=== PATIENT | female | born 1945 | race Caucasian/White ===

== ENCOUNTER → 2023-11-20 07:37 | Outpatient (REF) | payer MEDICARE, SELFPAY ==
[2023-11-20 10:33] LABS: ALT (SGPT) 30 U/L (0-35); AST (SGOT) 30 U/L (14-36); Albumin 4.2 g/dl (3.5-5.0); Alkaline Phosphatase 122 U/L (38-126); Blood Urea Nitrogen 12 mg/dl (7-17); Calcium 10.4 mg/dl (8.4-10.2); Carbon Dioxide 27 mmol/L (22-30); Chloride 105 mmol/L (98-107); Glucose 112 mg/dl (70-99); HDL Cholesterol 43 mg/dl; LDL Cholesterol, Calculated 51 mg/dl; Potassium 4.7 mmol/L (3.5-5.1); Sodium 138 mmol/L (135-145); Total Bilirubin 0.5 mg/dl (0.2-1.3); Total Cholesterol 148 mg/dl (50-199); Total Protein 6.5 g/dl (6.3-8.2); Triglyceride 270 mg/dl (10-149); Very Low Density Lipoprotein 54 mg/dl (0-30); eGFR > 60.00
[2023-11-20 11:52] LABS: Glycohemoglobin (HgbA1c) 6.5 % (4.0-5.6)
[2023-11-20 13:34] LABS: Microalbumin, Random Urine 0.9 mg/dl (0.6-1.7); Microalbumin/creatinine Ratio 22.8 mg/g
== END ==
LOC: REG 07:37
PROVIDERS: ATTENDING PHYSICIAN Internal Medicine
DX: E11.9 Type 2 diabetes mellitus without complications (principal); I10 Essential (primary) hypertension
CPT/HCPCS: 36415; 80053; 80061; 82043; 82570; 83036

== ENCOUNTER → 2023-11-24 11:51 | Outpatient (REF) | payer MEDICARE, SELFPAY | LOC: RAD 11:51 | PROVIDERS: ATTENDING PHYSICIAN Nurse Practitioner Adult Health; FAMILY PHYSICIAN Internal Medicine | DX: R06.09 Other forms of dyspnea (principal) | CPT/HCPCS: 71250 ==

== ENCOUNTER → 2023-12-17 17:27 | Outpatient (REF) | payer MEDICARE, SELFPAY | LOC: RAD 17:27 | PROVIDERS: ATTENDING PHYSICIAN Nurse Practitioner Adult Health; FAMILY PHYSICIAN Internal Medicine | DX: R59.9 Enlarged lymph nodes, unspecified (principal) | CPT/HCPCS: 76536 ==

== ENCOUNTER → 2023-12-21 10:48 | Outpatient (REF) | payer MEDICARE, SELFPAY | LOC: RAD 10:48 | PROVIDERS: ATTENDING PHYSICIAN Psychiatry & Neurology Neurology; FAMILY PHYSICIAN Internal Medicine | DX: M25.552 Pain in left hip (principal) | CPT/HCPCS: 73502 ==

== ENCOUNTER → 2023-12-23 11:29 | Outpatient (REF) | payer MEDICARE, SELFPAY | LOC: HWRAD 11:29 | PROVIDERS: ATTENDING PHYSICIAN Psychiatry & Neurology Neurology; FAMILY PHYSICIAN Internal Medicine | DX: M46.1 Sacroiliitis, not elsewhere classified (principal) | CPT/HCPCS: 72192 ==

== ENCOUNTER → 2023-12-28 12:57 | Outpatient (REF) | payer MEDICARE, SELFPAY ==
[2023-12-28 13:20] VITALS: BP 153/66; BP_SYST 86
[2023-12-28 14:23] VITALS: BP 122/68; BP_SYST 80
[2023-12-28 14:37] VITALS: BP 122/68
== END ==
LOC: RADI 12:57
PROVIDERS: ATTENDING PHYSICIAN Nurse Practitioner Adult Health; FAMILY PHYSICIAN Internal Medicine
DX: R59.0 Localized enlarged lymph nodes (principal)
CPT/HCPCS: 88172; 88173; 88305; 38505; 76942; 88341; 88342

== ENCOUNTER → 2024-01-27 11:33 | Outpatient (REF) | payer MEDICARE, SELFPAY | LOC: WDC 11:33 | PROVIDERS: ATTENDING PHYSICIAN Internal Medicine | DX: Z12.31 Encounter for screening mammogram for malignant neoplasm of breast (principal) | CPT/HCPCS: 77063; 77067 ==

== ENCOUNTER → 2024-02-17 06:58 | Outpatient (REF) | payer MEDICARE, SELFPAY ==
[2024-02-17 08:08] LABS: % Basophils 0.8 % (0-2); % Eosinophils 2.3 % (0-6); % Lymphocytes 23.7 % (20.5-51.1); % Monocytes 10.8 % (1.7-9.3); % Neutrophils 61.4 % (42.2-75.2); Absolute Basophils 0.1 10^3/uL (0-0.2); Absolute Eosinophils 0.1 10^3/uL (0-0.7); Absolute Immature Granulocytes 0.1 10^3/uL (0-0.05); Absolute Lymphocytes 1.5 10^3/uL (1.2-3.4); Absolute Monocytes 0.7 10^3/uL (0.1-0.6); Absolute Neutrophils 3.8 10^3/uL (1.4-6.5); Hematocrit 41.1 % (37.0-47.0); Hemoglobin 13.9 g/dL (12.0-16.0); Mean Corp Hgb Conc. 33.8 g/dL (33.0-37.0); Mean Corpuscular Hgb 30.7 pg (27.0-31.0); Mean Corpuscular Volume 90.7 fL (81.0-99.0); Mean Platelet Volume 10.6 fL (7.4-10.4); Nucleated Red Blood Cells % 0 %; Platelet Count 280 10^3/uL (130-400); Red Blood Cell Count 4.53 10^6/uL (4.20-5.40); Red Cell Dist. Width 14.4 % (11.5-14.5); White Blood Cell Count 6.1 10^3/uL (4.8-10.8)
[2024-02-17 08:36] LABS: ALT (SGPT) 30 U/L (0-35); AST (SGOT) 34 U/L (14-36); Albumin 4.4 g/dl (3.5-5.0); Alkaline Phosphatase 97 U/L (38-126); Blood Urea Nitrogen 13 mg/dl (7-17); Calcium 10.5 mg/dl (8.4-10.2); Carbon Dioxide 28 mmol/L (22-30); Chloride 105 mmol/L (98-107); Glucose 90 mg/dl (70-99); HDL Cholesterol 40 mg/dl; LDL Cholesterol, Calculated 92 mg/dl; Potassium 4.8 mmol/L (3.5-5.1); Sodium 142 mmol/L (135-145); Total Bilirubin 0.4 mg/dl (0.2-1.3); Total Cholesterol 187 mg/dl (50-199); Total Protein 6.8 g/dl (6.3-8.2); Triglyceride 279 mg/dl (10-149); Very Low Density Lipoprotein 55 mg/dl (0-30); eGFR > 60.00
[2024-02-17 09:09] LABS: CEA 0.84 ng/ml
[2024-02-17 09:20] LABS: INR 0.99; PT 13.1 Sec (11.4-14.6)
[2024-02-17 09:21] LABS: APTT 33.5 Sec (23.4-35.0)
[2024-02-17 11:41] LABS: Glycohemoglobin (HgbA1c) 6.3 % (4.0-5.6)
[2024-02-17 16:01] LABS: CA 125 8.8 U/mL (0-35)
[2024-02-18 23:50] LABS: CA 19-9 10 U/mL (<=35)
== END ==
LOC: REG 06:58
PROVIDERS: ATTENDING PHYSICIAN Internal Medicine Hematology & Oncology; FAMILY PHYSICIAN Internal Medicine
DX: R93.5 Abnormal findings on diagnostic imaging of other abdominal regions, including retroperitoneum (principal); R59.0 Localized enlarged lymph nodes; C77.0 Secondary and unspecified malignant neoplasm of lymph nodes of head, face and neck; I10 Essential (primary) hypertension; E78.2 Mixed hyperlipidemia; E11.65 Type 2 diabetes mellitus with hyperglycemia; E03.9 Hypothyroidism, unspecified
CPT/HCPCS: 36415; 80053; 80061; 82378; 83036; 84443; 85025; 85610; 85730; 86301; 86304

== ENCOUNTER → 2024-02-29 12:13 | Outpatient (REF) | payer MEDICARE, SELFPAY ==
[2024-02-29 12:54] VITALS: BP 166/87; BP_SYST 77
[2024-02-29 14:15] VITALS: BP 145/70
== END ==
LOC: RADI 12:13
PROVIDERS: ATTENDING PHYSICIAN Internal Medicine Hematology & Oncology; FAMILY PHYSICIAN Internal Medicine
DX: D36.12 Benign neoplasm of peripheral nerves and autonomic nervous system, upper limb, including shoulder (principal)
CPT/HCPCS: 88305; 20206; 76942; 88333; 88341; 88342

== ENCOUNTER 2024-04-04 06:35 | Day surgery (SDC) | payer MEDICARE, SELFPAY ==
[2024-04-04 07:36] VITALS: BMI 34.6
[2024-04-04 07:51] VITALS: BP 139/78
[2024-04-04 08:05] LABS: Glucose - Point of Care 122 mg/dl (70-99)
[2024-04-04 08:27] VITALS: BMI 34.6
[2024-04-04 11:03] LABS: Glucose - Point of Care 102 mg/dl (70-99)
[2024-04-04 11:35] VITALS: BP 132/73
[2024-04-04 11:45] VITALS: BP 129/60
[2024-04-04 12:00] VITALS: BP 141/81
== END 2024-04-04 12:16 | disposition home or self-care (01) ==
LOC: SDS 06:35
PROVIDERS: ATTENDING PHYSICIAN Internal Medicine Gastroenterology
DX: C64.2 Malignant neoplasm of left kidney, except renal pelvis (principal); R59.0 Localized enlarged lymph nodes; K83.8 Other specified diseases of biliary tract
CPT/HCPCS: 43242; 88172; 88173; 88305; 82962; 88341; 88342

== ENCOUNTER → 2024-04-07 14:06 | Outpatient (REF) | payer MEDICARE, SELFPAY | LOC: HWRAD 14:06 | PROVIDERS: ATTENDING PHYSICIAN Internal Medicine Hematology & Oncology; FAMILY PHYSICIAN Internal Medicine | DX: R93.5 Abnormal findings on diagnostic imaging of other abdominal regions, including retroperitoneum (principal); R59.0 Localized enlarged lymph nodes; C77.0 Secondary and unspecified malignant neoplasm of lymph nodes of head, face and neck | CPT/HCPCS: 74177; Q9967 ==

== ENCOUNTER → 2024-05-12 06:30 | Day surgery (SDC) | payer MEDICARE, SELFPAY ==
[2024-05-12 07:10] VITALS: BMI 34.4
[2024-05-12 07:12] VITALS: BMI 34.4
[2024-05-12 07:15] VITALS: BP 102/69
[2024-05-12] MEDS: TYLENOL 1000 MG PO (07:38)
[2024-05-12] MEDS: NORMOSOL-R/PLASMALYTE-A 1000 IV (07:46)
[2024-05-12 07:51] LABS: Glucose - Point of Care 108 mg/dl (70-99)
[2024-05-12 08:07] VITALS: BP_SYST 76
[2024-05-12] MEDS: VANCOCIN 300 MG IV (08:19)
[2024-05-12] MEDS: VANCOCIN 300 ML IV (08:19)
[2024-05-12 08:40] LABS: Glucose - Point of Care 95 mg/dl (70-99)
== END ==
LOC: SDS 06:30
PROVIDERS: ATTENDING PHYSICIAN Surgery
DX: R59.0 Localized enlarged lymph nodes (principal); Z53.8 Procedure and treatment not carried out for other reasons
CPT/HCPCS: 38500; 82962

== ENCOUNTER 2024-05-12 11:46 | Inpatient (IN) | payer MEDICARE, SELFPAY ==
[2024-05-12] VITALS (64 sets, daily range): BP systolic 77–156; BP diastolic 39–85; BMI 35.2
[2024-05-12 08:49] LABS: Glucose - Point of Care 112 mg/dl (70-99)
--- NOTE | 2024-05-12 09:02 | ED.GENMED ---
History of Present Illness
General
Chief Complaint: CODE
Source: patient and other (Nurse/PA/physician at code)
Time Seen by Provider: 05/12/24 08:47
History of Present Illness
History of Present Illness:
78-year-old female in her normal state of health presenting for node biopsy of her left neck. She was in the preop holding area. She had had the IV already placed. She was receiving vancomycin. 5 minutes after starting the vancomycin they
checked on her and she was unresponsive and pulseless. Appeared to be PEA. Possibly junctional. No V. tach V-fib or asystole. CPR was started. Epinephrine was given. She was brought to the emergency department. On arrival to the ER
complaining of nausea general weakness. No general itching no hives no airway issue. She is allergic to Benadryl.
Past History
Past History
ED Past Medical History: Asthma, IDDM, Valvular disease and Hypothyroidism
ED Past Surgical History: Appendectomy, Cholecystectomy, (x2), Gynecological (Hysterectomy) and Other (Biopsy on Wed of thyroid nodules, Parathyroid surg, Thoracic outlet surg, Cervical Laminectomy)
Social History
Tobacco: Non-smoker
Alcohol: Occasional
Drug: None
Personal:
Living: with family
Review of Systems
Review of Systems
All Other Systems: Not applicable
Respiratory: Denies trouble breathing
Cardiac: Denies palpitations
ABD/GI: Reports no symptoms
Phy Exam
Physical Exam
Physical Exam:
GENERAL: Alert. High flow oxygen in place. Slight dry heaving at times. Mild erythema to the face. No hives.
EYE: Orbits normal.
NECK: Supple, no significant adenopathy.
ENT: Pharynx without erythema. Speech normal. No drooling or stridor
CARDIAC: Tachycardic and regular. Mild midsystolic murmur
LUNGS: Few crackles in the bases of the lungs. Otherwise unremarkable
ABDOMEN: Soft, without focal tenderness or distention
NEUROLOGICAL: Alert and oriented , grossly non-focal
SKIN: Warm and dry, no rash or lesion, no discoloration, skin intact.
MUSCULOSKELETAL: No edema,no deformity.Good color
PSYCH: Normal and appropriate interaction.
Course
Orders/Labs/Results
Orders:
Orders
05/12/24 08:53
Chest X-ray Portable [CR Chest Portable - 1 View] Stat
Comment:
Reason For Exam: breathing
Reason Study Needs to be Portable: Unable to Transport
05/12/24 08:55
Electrocardiogram (*1) Stat
Reason for Study: Other
Other Reason for Exam: chest pain
Cardiac Monitoring- Treatment ONCE
EKG- Treatment ONCE
IV Insert/Care/Rem.- Treatment PRN
Dexamethasone Sod Phosphate [Decadron] 8 mg IV NOW STA
Famotidine [Pepcid] 20 mg IV NOW STA
Pulse Ox/cont/shift [RESP] Stat
Quantity: 1
05/12/24 08:56
Dexamethasone Sod Phosphate [Decadron] 8 mg .ROUTE .STK-MED ONE
Famotidine [Pepcid] 20 mg .ROUTE .STK-MED ONE
05/12/24 09:01
Ondansetron Injectable [Zofran] 4 mg .ROUTE .STK-MED ONE
05/12/24 09:05
Ondansetron Injectable [Zofran] 4 mg IV NOW STA
05/12/24 09:15
Echo 2D MMode Color/Doppler [Echo 2D MMode Color/Doppler] Urgent
Reason for Study: cardiac arrest
05/12/24 09:27
Basic Metabolic Panel Urgent
Complete Blood Count/With Diff Urgent
D-Dimer Urgent
Comment: ADD ON
Magnesium Urgent
Comment: ADD
PTT Urgent
Prothrombin Time Urgent
Troponin I Urgent
05/12/24 09:35
EPINEPHrine 4 mg/250 mL NSS [Adrenalin] 4 mg in 250 ml IV NOW
Initial dose in mcg/min, then titrate:: 2
Titrate to keep:: MAP > 65 mmHg
Titrate by mcg/min:: 0.5 - 1 mcg/minute
Frequency of titrations (minutes):: 5
Maximum dose in mcg/min:: 10
Begin to taper infusion when:: Remained at goal for 4hrs
Taper by mcg/min:: 0.5 - 1 mcg/minute
Frequency of taper (minutes) if patient maintains goal:: 30
Taper to off?: Yes
If infusion off & no longer maintaining goal:: Contact Provider
05/12/24 11:18
Admit/Transfer Patient As Directed
Co-Sign Provider:
Level of Care: Inpatient admission
Assign to:: ICU
Physician / Group: Maria Del Rosario
Diagnosis: anaphylaxis with distributive shock
Reason for Hospitalization: anaphylaxis with distributive shock
Expected length of stay greater than two midnights?: Yes
ELOS- Estimated Length of Stay in days: 3
I certify the patient meets the requirements for IP care: Yes
PRN Pain Medication Management As Directed
May give lesser potent ordered pain med per pt: Yes
preference::
Protocol:: Medication orders for pain may be administered in a
manner that supports deferring to patient preference
when the pt is:
- Requesting an ordered lesser potent pain medication.
Least to most potent pain medications are defined
as: acetaminophen < NSAID < tramadol < opioids
(morphine, oxycodone, hydromorphone).
- Requesting a lesser dose of the same medication IF
ORDERED.
- Requesting a less intrusive route of administration
if both routes are prescribed by the provider (PO <
IV).
05/12/24 11:27
Code Status As Directed
Resuscitation Status: Full Code
05/12/24 13:13
0.9% Sodium Chloride 1000 ml [Nss] 1,000 ml IV 125 mls/hr
Bisacodyl [Dulcolax] 10 mg RECTAL [id number] PRN
Dextrose 50%-Water [Dextrose 50% Syringe] 12.5 grams IV [id number] PRN
Docusate W/Senna [Senokot-S] 1 tablet PO BIDPRN PRN
EPINEPHrine 4 mg/250 mL NSS [Adrenalin] 4 mg in 250 ml IV PER PROTOCOL
Currently infusing. Continue current dose and titrate:: Yes
Titrate to keep:: MAP > 65 mmHg
Titrate by mcg/min:: 0.5-1 mcg/min
Frequency of titrations (minutes):: 5
Maximum dose in mcg/min:: 10
Begin to taper infusion when:: Remained at goal for 4hrs
Taper by mcg/min:: 0.5-1 mcg/min
Frequency of taper (minutes) if patient maintains goal:: 30
Taper to off?: Yes
If infusion off & no longer maintaining goal:: Contact Provider
Glucagon [GlucaGen] 1 mg IM PRN PRN
HYDROmorphone [Dilaudid] 2 mg PO BIDPRN PRN
Insulin Aspart High Resistance [Novolog Flexpen-High Resistance] See Protocol SC AC
Ondansetron Injectable [Zofran] 4 mg IV Q6HPRN PRN
Polyethylene Glycol Powder [Miralax] 17 grams PO DAILYPRN PRN
05/12/24 13:13
Activity As Directed
Activity Level: With Assistance
Bedside Glucose Monitoring As Directed
Frequency: AC&HS
Additional Instructions:: Change to q6h if pt on TPN, tube feeding or not eating
Vital Signs As Directed
Frequency: Per unit guidelines
DX Deep Vein Thrombosis Video Routine
05/12/24 14:34
Lidocaine [Lidocaine 4% Patch] 1 patch TOPICAL DAILYPRN PRN
05/12/24 Dinner
1800 calorie (15 carb) Diabetic
At Your Request: Full Participation
05/12/24 18:00
Calcium Carbonate [Oscal Juan Manuel 500] 500 mg PO QPM
Calcium Polycarbophil [Fibercon] 1,250 mg PO QPM
Cholecalciferol (Vitamin D3) [VITAMIN D3 (cholecalciferol)] 25 mcg PO QPM
Cyanocobalamin [Vitamin B-12] 1,000 mcg PO QPM
Duloxetine Delayed Release [Cymbalta Delayed Release] 60 mg PO Q48H
Enoxaparin Sodium [Lovenox] 40 mg SC QPM
Gabapentin [Neurontin] 300 mg PO BID@0800,1800
Insulin Glargine Lantus [Lantus] 50 units Subcutaneous Insulin Syringe [Syringe-Insulin] 0 unit SC BID
Multivitamin [Theragran] 1 tablet PO QPM
05/12/24 22:00
Aspirin Low Dose EC [Aspir Low (Enteric Coated)] 81 mg PO HS
Clonazepam [Klonopin] 0.5 mg PO HS
Cyclobenzaprine HCl [Flexeril] 10 mg PO HS
Gabapentin [Neurontin] 600 mg PO HS
05/13/24 06:00
Basic Metabolic Panel IN AM
Complete Blood Count/No Diff IN AM
Glycohemoglobin (HgbA1c) IN AM
Levothyroxine [Synthroid] 100 mcg PO DAILY@0600
05/13/24 08:00
MetroNIDAZOLE (NON-FORM) [Metrocream 0.75% Cream] See Dose Instructions TOPICAL DAILY
doxycycline monohydrate [Oracea] See Dose Instructions PO DAILY
Abnormal Lab Results
05/12/24 05/12/24
08:48 09:27
RBC 4.06 L 10^6/uL
(4.20-5.40)
RDW 14.9 H %
(11.5-14.5)
MPV 10.6 H fL
(7.4-10.4)
Abs Immat Gran (auto) 0.1 H 10^3/uL
(0-0.05)
Immature Gran % 1.3 H %
(0-0.5)
D-Dimer 0.89 H ug/mlFEU
(0.00-0.50)
Chloride 109 H mmol/L
(98-107)
Glucose 149 H mg/dl
(70-99)
POC Glucose 112 H mg/dl
(70-99)
05/12/24 09:27
05/12/24 09:27
Vital Signs
Initial and Last Documented VS:
Initial Vital Signs
Pulse Resp BP Pulse Ox
132 20 105/65 93
05/12/24 08:48 05/12/24 08:48 05/12/24 08:48 05/12/24 08:48
Last Documented Vital Signs
Temp Pulse Resp BP Pulse Ox
98.7 F 110 20 100/64 95
05/12/24 15:06 05/12/24 13:21 05/12/24 13:10 05/12/24 13:00 05/12/24 13:10
*Pulse Oximetry
Patient hypoxic: yes
*EKG
Interpreted by ED Provider?: Yes
Interpretation: abnormal
Comparison EKG: changes noted
Heart Rate: 139
Rate: tachycardiac
Rhythm: sinus
Interval: normal interval
QRS Pattern: normal QRS
Ischemia: non-specific ST changes
*Measurement Psychologist Interpretation
Rate: tachycardiac
Interpretation: abnormal
Heart Rate: 107
Rhythm: sinus
*Critical Care Note
Total Time (30-74mins, 75-104mins- exclusive of procedures): 70
Update Note
Update Note:
0900... Status post cardiac arrest in IR. Patient was there for a routine lymph node biopsy. Asymptomatic on arrival to IR. Symptoms started 5 minutes after vancomycin. Apparently became pulseless unresponsive. Was somewhat erythematous but was
erythematous prior to the vancomycin. Was given epinephrine.
On arrival tachycardic nauseous. Nonrebreather in place. Tachycardia slowly improving. EKG with no acute severe ischemic changes. Chest x-ray unremarkable. Contacted cardiology for their input and opinion. At this point given the chronicity of
starting 5 minutes after the Vanco most suspicious of an anaphylactic like reaction.
0920.... Patient appears improved although mildly hypotensive. Cardiology will see and get a stat echo.
0935... Blood pressure 85. Wide-open fluids. Echo being done now. Very preliminary that there is no obvious issues.
1000... Cardiology in seeing the patient. Blood pressure running about 80. Despite wide-open fluids. Discussed epinephrine with cardiology. We will start a low epinephrine drip
1030... Monitor checked multiple times. Patient rechecked. Stable. Blood pressure 90. Perfusing well.
ED Attending Note
-
Portions of this chart may have been created with voice recognition software.� Occasional wrong word or��sound alike� substitutions may have occurred due to the inherent limitations of voice recognition software.
Discharge Plan
Departure
Patient Disposition: Admit
Date of Disposition: 05/12/24
Time of Disposition: 09:30
Presentation/result/management discussed w/ accepting MD/DO: Cardiology
Discharge Problem:
Status postcardiac arrest, Anaphylactic shock
Interventions
Interventions:
*Risk Screen - Suicide Last Done: 05/12/24 09:06
*General Assessment Last Done: 05/12/24 08:48
*Neglect/Abuse Screening Last Done: 05/12/24 09:06
*ED COVID-19 Vaccine History Last Done: 05/12/24 13:54
*Nursing Disposition Last Done: 05/12/24 13:25
ED- Cardiac Assessment Last Done: 05/12/24 09:15
ED- Pulmonary Assessment Last Done: 05/12/24 09:15
Discharge Date and Time
Discharge Date/Time: 05/12/24 13:26
[2024-05-12] MEDS: PEPCID 20 MG IV (09:04)
[2024-05-12] MEDS: DECADRON 8 MG IV (09:04)
[2024-05-12] MEDS: ZOFRAN 4 MG IV (09:05)
--- NOTE | 2024-05-12 09:05 | W.PN.UPDATE ---
Update Note
Progress Note Update
Code 9 was called at 8:34 AM while patient was in IR holding room. Per staff on the scene she was recently started on a vancomycin drip (within minutes of event), when physician evaluated she was unresponsive and a pulse could not be identified.
CPR was started at that point. I was immediately available at the bedside for assistance
Per nursing she had a red appearance of her head and neck when she arrived in IR holding, prior to vancomycin initiation. Monitor apparently read sinus rhythm, no pulse obtained, presumed PEA arrest. Glucose 95 on [id number].
CPR was performed for <5 minutes, 1 dose of epinephrine was given with achievement of ROSC. Her redness to her head and neck improved following ROSC. No obvious abnormalities on auscultation of the thorax and precordium.
She was immediately transferred to the ED for hospital admission.
Ordered: CMP, CBC, troponin, lactate, chest x-ray
When speaking with the patient's , she has a history of diabetes and aortic stenosis (unclear severity) with former smoking status. Denies history of heart attacks or stent placement, denies known family history of early cardiac arrest. She
was n.p.o. prior to procedure so suspicion for aspiration event is low.
[2024-05-12 09:38] LABS: % Basophils 0.8 % (0-2); % Eosinophils 0.9 % (0-6); % Immature Granulocytes 1.3 % (0-0.5); % Lymphocytes 21.1 % (20.5-51.1); % Monocytes 5.5 % (1.7-9.3); % Neutrophils 70.4 % (42.2-75.2); Absolute Basophils 0.1 10^3/uL (0-0.2); Absolute Eosinophils 0.1 10^3/uL (0-0.7); Absolute Immature Granulocytes 0.1 10^3/uL (0-0.05); Absolute Lymphocytes 1.9 10^3/uL (1.2-3.4); Absolute Monocytes 0.5 10^3/uL (0.1-0.6); Absolute Neutrophils 6.5 10^3/uL (1.4-6.5); Hematocrit 37.2 % (37.0-47.0); Hemoglobin 12.6 g/dL (12.0-16.0); Mean Corp Hgb Conc. 33.9 g/dL (33.0-37.0); Mean Corpuscular Volume 91.6 fL (81.0-99.0); Mean Platelet Volume 10.6 fL (7.4-10.4); Nucleated Red Blood Cells % 0 %; Platelet Count 242 10^3/uL (130-400); Red Blood Cell Count 4.06 10^6/uL (4.20-5.40); Red Cell Dist. Width 14.9 % (11.5-14.5); White Blood Cell Count 9.2 10^3/uL (4.8-10.8)
[2024-05-12 09:47] LABS: INR 1.08; PT 13.9 Sec (11.4-14.6)
[2024-05-12 09:48] LABS: APTT 27.1 Sec (23.4-35.0)
[2024-05-12 09:55] LABS: Blood Urea Nitrogen 14 mg/dl (7-17); Calcium 9.4 mg/dl (8.4-10.2); Carbon Dioxide 22 mmol/L (22-30); Chloride 109 mmol/L (98-107); Estimated Creatinine Clearance 86 ml/min; Glucose 149 mg/dl (70-99); Sodium 143 mmol/L (135-145); eGFR > 60.00
[2024-05-12] MEDS: ADRENALIN 250 IV (09:59)
[2024-05-12 10:04] LABS: Troponin I < 0.012 ng/ml
--- NOTE | 2024-05-12 10:40 | HPS.HSE ---
Family Physician
-
Family Physician: Mirta Hicks
Chief Complaint
-
PEA cardiac arrest
History of Present Illness
78 y/o F with PMHx:
Adenocarcinoma unknown primary
Essential hypertension
Hypothyroidism
DM2
Who presents after cardiac arrest and interventional radiology. The patient was to have a lymph node biopsy. She was in her usual state of health. She was given vancomycin and about 5 minutes later was found unresponsive with pulseless electrical
activity. She had no asystole/V. tach/V-fib. She had 1 round of CPR and epinephrine after which she had return of spontaneous circulation. At the time she arrived to the ER she did report nausea and generalized weakness.
Medical History
Past Medical History
Past Medical History: Reports Other (Adenocarcinoma unknown primary Essential hypertension Hypothyroidism DM2)
Past Surgical History: Reports Appendectomy, Cholecystectomy, and Gynocological (hysterectomy)
Social History
Tobacco: Non-smoker
Alcohol: Occasional
Drug: None
Personal:
Living: With Family
Family History
Family History: Not pertinent
Allergies / Home Medications
Allergies reflects when Allergies were last updated in [employer].
Home Medications with original date entered in [employer]
Allergy/Medication List:
Allergies
Allergy/AdvReac Type Severity Reaction Status Date / Time
adhesive tape Allergy Rash Verified 05/12/24 08:48
diphenhydramine Allergy akasthesia Verified 05/12/24 08:48
morphine Allergy n/v Verified 05/12/24 08:48
oxycodone Allergy n/v Verified 05/12/24 08:48
oxycodone HCl [From Percocet] Allergy Nausea / Verified 05/12/24 08:48
Vomiting
Penicillins Allergy Hives Verified 05/12/24 08:48
[id number] Reductase Allergy Unknown Verified 05/12/24 08:48
Inhibitor
vancomycin Allergy Anaphylaxis Verified 05/12/24 09:16
Home Medications
aspirin 81 mg tablet,delayed release 81 mg PO HS 10/25/17
clonazepam 0.5 mg tablet 0.5 mg PO HS 10/25/17
cyclobenzaprine 10 mg tablet 10 mg PO HS 10/25/17
fish oil-dha-epa 1,200 mg-144 mg-216 mg capsule 1 cap PO BID 10/25/17
hydrochlorothiazide 25 mg tablet 25 mg PO MOFR 10/25/17
levothyroxine 100 mcg tablet 100 mcg PO DAILY 10/25/17
multivitamin with folic acid 400 mcg tablet (Tab-A-Eleni) 1 tab PO QPM 10/25/17
calcium polycarbophil 625 mg tablet (Fiber-Tabs) 1,250 mg PO QPM 11/09/17
cyanocobalamin (vitamin B-12) 1,000 mcg tablet 1,000 mcg PO QPM 11/09/17
duloxetine 60 mg capsule,delayed release 60 mg PO Q48H@1800 11/09/17
insulin glargine 100 unit/mL (3 mL) subcutaneous pen (Lantus Solostar U-100 Insulin) 48 - 75 units SC BID 11/09/17
hydromorphone 2 mg tablet (Dilaudid) 2 mg PO BIDPRN PRN severe pain 12/28/23
semaglutide 2 mg/dose (8 mg/3 mL) subcutaneous pen injector (Ozempic) 2 mg SC HI 12/28/23
calcium carbonate 500 mg PO QPM 05/12/24
cholecalciferol (vitamin D3) 25 mcg (1,000 unit) tablet (Vitamin D3) 25 mcg PO QPM 05/12/24
doxycycline monohydrate 40 mg capsule,immediate - delay release (Oracea) 40 mg PO DAILY 05/12/24
gabapentin 300 mg capsule 300 mg PO BID@0800,1800 05/12/24
gabapentin 300 mg capsule 600 mg PO HS 05/12/24
lidocaine 5 % topical patch 1 patch topical DAILYPRN PRN lower back 05/12/24
metronidazole 0.75 % topical cream 1 applic topical DAILY face 05/12/24
Review of Systems
-
History Source: Patient
A 12 point ROS was completed and negative except as noted: Yes
Physical Exam
Vital Signs
Vital Signs
Temp Pulse Resp BP Pulse Ox
97.4 F 95 17 100/57 95
05/12/24 09:06 05/12/24 10:35 05/12/24 10:35 05/12/24 10:35 05/12/24 10:35
Physical Exam
General: Other (.)
Laboratory Results
-
05/12/24 09:27
05/12/24 09:27
Laboratory Results
PT 13.9 Sec (11.4-14.6) 05/12/24 09:27
INR 1.08 05/12/24 09:27
APTT 27.1 Sec (23.4-35.0) 05/12/24 09:27
Troponin I < 0.012 ng/ml 05/12/24 09:27
Impression/Plan
-
Gen: NAD, AAOx3.
Eyes: EOMI, PERRLA, no scleral icterus.
Neck: supple.
CV: RRR, +S1/S2, no m/r/g.
Resp: CTAB, no rales, wheezes, or rhonchi.
Abd: +BS, soft, NT, ND
Skin: No rashes.
Neuro: CN 2-12 intact, non-focal.
Psych: Normal mood and affect.
CXR: Linear foci in both lower lobes are likely subsegmental atelectasis
ECG (read by me): sinus tachy at 139, nl axis/intervals, no acute ST/TW changes
Echo: EF 70-75%. Mod . Peak/mean gradients are 42/20 mmHg. The valve area by continuity equation is 1.0 cmsq, using a LVOT of 2.0cm. Mild AR. Normal pericardium without effusion.
ER Tx: Decadron 8mg IV, Pepcid 20mg (allergic to benadryl), epinephrine gtt started
Acute PEA cardiac arrest:
-likely due to anaphylaxis from vancomycin
-Patient with distributive shock and epinephrine drip started which we will continue
-admit to ICU
-continue to NC O2 support, wean as tolerated
-echo above, no RWMA, decreased EF, etc
-cont Decadron
Adenocarcinoma unknown primary:
-records requested from pt's oncologist to review
Other problems:
Essential hypertension: Hold HCTZ
Hypothyroidism: cont Levoxyl
DM2: cont Lantus/SSI/accuchecks, check a1c
Total critical care time spent = 55 min
[2024-05-12 13:04] LABS: Glucose - Point of Care 192 mg/dl (70-99)
[2024-05-12 13:06] LABS: D-Dimer 0.89 ug/mlFEU (0.00-0.50)
--- NOTE | 2024-05-12 13:27 | CON.INTV ---
Consultation
Consultation Request
Date/Time Consultation Requested: 05/12/24
Date/Time Consultation Performed: 05/12/24
Performing Provider: Rosibel
Reason for Consultation: ICU
Medical History
-
History of Present Illness:
Patient is an 78-year-old female with previous history of asthma, ROSALIA, hypertension presenting for elective lymph node biopsy. She was in her usual state of health prior to presentation. There was notable flushing of her face on arrival to IR
suite. She had been started on vancomycin infusion and about 5 minutes later was found unresponsive with pulseless electrical activity. Code 9 called, she underwent 1 round of CPR and epinephrine and had return of spontaneous circulation. She was
transported to ER for further workup. Blood work was unremarkable, she is placed on epinephrine drip due to hypotension for presumed vancomycin allergy. Admitted to ICU for further evaluation.
.
Past Medical History
Past Medical History: Other (see list below)
Social History
Tobacco: Non-smoker
Alcohol: None
Drug: None
Family History
Family History: Reviewed & Not Pertinent
Allergies / Home Medications
Allergies
Allergy/AdvReac Type Severity Reaction Status Date / Time
adhesive tape Allergy Rash Verified 05/12/24 08:48
diphenhydramine Allergy akasthesia Verified 05/12/24 08:48
morphine Allergy n/v Verified 05/12/24 08:48
oxycodone Allergy n/v Verified 05/12/24 08:48
oxycodone HCl [From Percocet] Allergy Nausea / Verified 05/12/24 08:48
Vomiting
Penicillins Allergy Hives Verified 05/12/24 08:48
[id number]-[id number]-[id number] Reductase Allergy Unknown Verified 05/12/24 08:48
Inhibitor
vancomycin Allergy Anaphylaxis Verified 05/12/24 09:16
Home Medications
�Medication �Instructions �Recorded �Confirmed �Last Taken �Type
aspirin 81 mg tablet,delayed 81 mg PO HS Blood Clot 10/25/17 05/12/24 05/11/24 18:30 History
release Prevention/Tx
clonazepam 0.5 mg tablet 0.5 mg PO HS anxiety/sleep 10/25/17 05/12/24 05/11/24 22:00 History
cyclobenzaprine 10 mg tablet 10 mg PO HS pain/spasms 10/25/17 05/12/24 05/11/24 22:00 History
fish oil-dha-epa 1,200 mg-144 1 cap PO BID Supplement 10/25/17 05/12/24 05/11/24 History
mg-216 mg capsule
hydrochlorothiazide 25 mg tablet 25 mg PO MOFR blood pressure 10/25/17 05/12/24 05/08/24 History
levothyroxine 100 mcg tablet 100 mcg PO DAILY thyroid 10/25/17 05/12/24 05/12/24 06:00 History
multivitamin with folic acid 400 1 tab PO QPM Supplement 10/25/17 05/12/24 05/11/24 History
mcg tablet (Tab-A-Eleni)
calcium polycarbophil 625 mg 1,250 mg PO QPM constipation 11/09/17 05/12/24 05/11/24 History
tablet (Fiber-Tabs)
cyanocobalamin (vitamin B-12) 1,000 mcg PO QPM supplement 11/09/17 05/12/24 05/11/24 History
1,000 mcg tablet
duloxetine 60 mg capsule,delayed 60 mg PO Q48H@1800 11/09/17 05/12/24 05/11/24 18:30 History
release depression/anxiety
insulin glargine 100 unit/mL (3 48 - 75 units SC BID diabetes 11/09/17 05/12/24 05/11/24 18:30 History
mL) subcutaneous pen (Lantus
Solostar U-100 Insulin)
hydromorphone 2 mg tablet 2 mg PO BIDPRN PRN severe pain 12/28/23 05/12/24 04/01/24 History
(Dilaudid)
semaglutide 2 mg/dose (8 mg/3 mL) 2 mg SC HI diabetes 12/28/23 05/12/24 05/07/24 History
subcutaneous pen injector (Ozempic)
calcium carbonate 500 mg PO QPM Supplement 05/12/24 05/12/24 05/11/24 History
cholecalciferol (vitamin D3) 25 25 mcg PO QPM Supplement 05/12/24 05/12/24 05/11/24 History
mcg (1,000 unit) tablet (Vitamin
D3)
doxycycline monohydrate 40 mg 40 mg PO DAILY infection 05/12/24 05/12/24 05/11/24 History
capsule,immediate - delay release prophylaxis
(Oracea)
gabapentin 300 mg capsule 300 mg PO BID@0800,1800 pain 05/12/24 05/12/24 05/11/24 History
gabapentin 300 mg capsule 600 mg PO HS pain 05/12/24 05/12/24 05/11/24 History
lidocaine 5 % topical patch 1 patch topical DAILYPRN PRN lower 05/12/24 05/12/24 Unknown History
back
metronidazole 0.75 % topical cream 1 applic topical DAILY face 05/12/24 05/12/24 Unknown History
Review of Systems
-
History Source: Patient
All other systems: Negative unless noted
Vitals / Labs / Diagnostic Testing
Vital Signs
Temp Pulse Resp BP Pulse Ox
97.4 F 110 20 100/64 95
05/12/24 09:06 05/12/24 13:21 05/12/24 13:10 05/12/24 13:00 05/12/24 13:10
Lab Data
05/12/24 09:27
05/12/24 09:27
Laboratory Results
05/12/24
09:27
PT 13.9
INR 1.08
APTT 27.1
Diagnostic Testing:
Physical Exam
-
HEENT: Normocephalic, Anicteric and Moist Mucous Membranes
Cardiovascular: S1/S2 and Regular Rhythm
Respiratory: Clear and Non-Labored Respirations
GI: Soft, Non Distended and Non Tender
Neurology: Awake, Alert, Oriented and No Motor Deficits
Skin: Warm, Dry and Good Color
General: Comfortable, Pain (chest 2/2 CPR) and Other (NAD)
Assessment
-
Patient is an 78-year-old female with previous history of asthma, ROSALIA, hypertension presenting for elective lymph node biopsy. She was in her usual state of health prior to presentation. There was notable flushing of her face on arrival to IR
suite. She had been started on vancomycin infusion and about 5 minutes later was found unresponsive with pulseless electrical activity. Code 9 called, she underwent 1 round of CPR and epinephrine and had return of spontaneous circulation. She was
transported to ER for further workup. Blood work was unremarkable, she is placed on epinephrine drip due to hypotension for presumed vancomycin allergy. Admitted to ICU for further evaluation.
Presumed vancomycin allergy
Shock, on epi gtt
Unresponsive episode s/p CPR, 1 epi, with ROSC
Hyperglycemia
Lymphadenopathy, presumed malignancy
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
Asthma, well controlled
ROSALIA on CPAP
Moderate on ECHO
Obesity
Essential hypertension
Hypothyroidism
DM2
Appendectomy
Cholecystectomy
Hysterectomy
Plan
No current signs of metabolic encephalopathy or MS changes/following commands
Denies pain at this time. Slight chest pain at site of CPR, mild
Pain/sedation: PRN
RASS goals: 0
Hemodynamically stable, not requiring pressors.
Requiring pressors: epi gtt started, this is now off
Cardiac history reviewed--HTN
Prior ECHO reviewed indicating hyperdynamic EF, moderate , stable
Cards eval, no indication for cath
Monitor on telemetry
Oxygen needs: stable on RA
Prior history of lung disease: asthma, ROSALIA on CPAP
Supplemental O2 as indicated to maintain sats > 89%
CXR/CT reviewed indicating NAD
Check d-dimer to r/o VTE
Diet advancement per team
Cosmetologist Apprentice recommendations
Aspiration precautions, HOB > 30 degrees
Speech therapy eval can be considered if at elevated risk
GI prophylaxis if indicated
Creat at baseline, no history of renal disease
Void trials
Follow urine output, critical I/Os
Replete electrolytes as needed
No signs/symptoms suspicious for infectious etiology at this time
Observe off antibiotics for now
Follow fever trend, WBC count
CBC stable, no signs of bleeding or coagulopathy.
DVT prophylaxis as assessed based on risk, including mechanical SCDs
Can transfuse if indicated for Hb <7, plt < 10
INR WNL
H/o hypothyroidism, can continue on home synthroid dose
H/o diabetes, can continue on home meds, SS for coverage
HbA1c 6.3
We will follow
Likely if improved and w/u negative, can d/c tomorrow to home
Diagnostic Data
Chest X-Ray: 05/12/24- Linear foci in both lower lobes are likely subsegmental atelectasis
CT Scan: AP 04/07/24- 1. No significant acute abnormality identified in the abdomen or pelvis, as described above.
2. Grossly stable scattered small retroperitoneal lymph nodes, likely reactive. Additional stable chronic findings as described.
Echo: 05/12/24- Hyperdynamic left ventricular systolic function. Left ventricular ejection fraction is 70-75%. Moderate aortic stenosis. Peak/mean gradients are 42/20 mmHg. The valve area by
continuity equation is 1.0 cmsq, using a LVOT of 2.0cm. Mild aortic regurgitation. Normal pericardium without effusion.
PFT's:
Reports and relevant images were personally reviewed.
-----
Critical care time 75 mins -- this includes review of history, physical exam, medications, hemodynamic/ventilator parameters, laboratory data, imaging and discussion with house staff, pharmacy, respiratory therapy, edge banding machine offbearer, and nursing. Present
during code earlier this AM.
[2024-05-12] MEDS: NSS 1000 IV ×2 (13:46→21:59)
[2024-05-12 13:48] LABS: Magnesium 1.9 mg/dl (1.6-2.3)
[2024-05-12] MEDS: NOVOLOG FLEXPEN-HIGH RESISTANCE SC (15:09)
[2024-05-12] MEDS: DECADRON 4 MG IV ×2 (16:41→21:59)
[2024-05-12] MEDS: NOVOLOG FLEXPEN-HIGH RESISTANCE 1 UNITS SC (16:46)
[2024-05-12 16:49] LABS: Glucose - Point of Care 145 mg/dl (70-99)
--- NOTE | 2024-05-12 17:30 | CON.CAR ---
Consultation
Consultation Request
Date/Time Consultation Requested: 05/12/24, 9am
Date/Time Consultation Performed: 05/12/24, 930am
Requesting Provider: Chaka
Performing Provider: Naresh
Reason for Consultation: cardiac arrest
Medical History
-
Chief Complaint: cardiac arrest
History of Present Illness:
78 yo female with PMH of moderate , HTN, DM presented to IR suite for excision lymph node biopsy. Was given IV vanco as pre med. Reports that she felt itchy, and then woke up with people working on her. It appear she had a PEA arrest after
receiving the vanco. Received CPR and epinephrine, with ROSC. She does not recall any chest pain, SOB, dizziness.
Past Medical History
Past Medical History: HTN, IDDM and Valvular Disease (aortic stenosis)
Past Surgical History: Cholecystectomy and
Social History
Tobacco: Non-Smoker
Family History
Family History: Early CAD (none)
Allergies / Home Medications
Allergy/AdvReac Type Severity Reaction Status Date / Time
adhesive tape Allergy Rash Verified 05/12/24 08:48
diphenhydramine Allergy akasthesia Verified 05/12/24 08:48
morphine Allergy n/v Verified 05/12/24 08:48
oxycodone Allergy n/v Verified 05/12/24 08:48
oxycodone HCl [From Percocet] Allergy Nausea / Verified 05/12/24 08:48
Vomiting
Penicillins Allergy Hives Verified 05/12/24 08:48
Grxvlhi-UVX-HoE Reductase Allergy elevated Verified 05/12/24 13:28
Inhibitor liver
enzymes
vancomycin Allergy Anaphylaxis Verified 05/12/24 09:16
�Medication �Instructions �Recorded �Confirmed �Type
aspirin 81 mg tablet,delayed 81 mg PO HS Blood Clot 10/25/17 05/12/24 History
release Prevention/Tx
clonazepam 0.5 mg tablet 0.5 mg PO HS anxiety/sleep 10/25/17 05/12/24 History
cyclobenzaprine 10 mg tablet 10 mg PO HS pain/spasms 10/25/17 05/12/24 History
fish oil-dha-epa 1,200 mg-144 1 cap PO BID Supplement 10/25/17 05/12/24 History
mg-216 mg capsule
hydrochlorothiazide 25 mg tablet 25 mg PO MOFR PRN edema 10/25/17 05/12/24 History
levothyroxine 100 mcg tablet 100 mcg PO DAILY thyroid 10/25/17 05/12/24 History
multivitamin with folic acid 400 1 tab PO QPM Supplement 10/25/17 05/12/24 History
mcg tablet (Tab-A-Eleni)
calcium polycarbophil 625 mg 1,250 mg PO QPM constipation 11/09/17 05/12/24 History
tablet (Fiber-Tabs)
cyanocobalamin (vitamin B-12) 1,000 mcg PO QPM supplement 11/09/17 05/12/24 History
1,000 mcg tablet
duloxetine 60 mg capsule,delayed 60 mg PO Q48H@1800 11/09/17 05/12/24 History
release depression/anxiety
insulin glargine 100 unit/mL (3 48 - 75 units SC BID diabetes 11/09/17 05/12/24 History
mL) subcutaneous pen (Lantus
Solostar U-100 Insulin)
hydromorphone 2 mg tablet 2 mg PO BIDPRN PRN severe pain 12/28/23 05/12/24 History
(Dilaudid)
semaglutide 2 mg/dose (8 mg/3 mL) 2 mg SC HI diabetes 12/28/23 05/12/24 History
subcutaneous pen injector (Ozempic)
albuterol sulfate 90 mcg/actuation 2 puff inhalation QID PRN sob 05/12/24 05/12/24 History
aerosol inhaler
budesonide-formoterol HFA 160 2 puff inhalation BID 05/12/24 05/12/24 History
mcg-4.5 mcg/actuation aerosol
inhaler (Symbicort)
calcium carbonate 500 mg PO QPM Supplement 05/12/24 05/12/24 History
cholecalciferol (vitamin D3) 25 25 mcg PO QPM Supplement 05/12/24 05/12/24 History
mcg (1,000 unit) tablet (Vitamin
D3)
doxycycline monohydrate 40 mg 40 mg PO DAILY infection 05/12/24 05/12/24 History
capsule,immediate - delay release prophylaxis
(Oracea)
gabapentin 300 mg capsule 300 mg PO BID@0800,1800 pain 05/12/24 05/12/24 History
gabapentin 300 mg capsule 600 mg PO HS pain 05/12/24 05/12/24 History
lidocaine 5 % topical patch 1 patch topical DAILY Pain 05/12/24 05/12/24 History
metronidazole 0.75 % topical cream 1 applic topical DAILY face 05/12/24 05/12/24 History
Review of Systems
-
History Source: Patient and Family
Skin: Itching
Neurological: Weakness
Physical Exam
Vital Signs
Temp Pulse Resp BP Pulse Ox
98.7 F 98 21 129/66 95
05/12/24 15:06 05/12/24 15:00 05/12/24 15:00 05/12/24 15:00 05/12/24 15:00
Lab Results
05/12/24 09:27
05/12/24 09:27
Troponin I < 0.012 ng/ml 05/12/24 09:27
Physical Exam
General: Well Developed and Well Nourished
HEENT: Normocephalic and Anicteric
Respiratory: Clear and Non Labored Respirations
Cardiac: S1/S2 (normal), Regular Rhythm, Murmur (II/ systolic at RUSB), Peripheral Edema (none) and JVD (none)
Musculoskeletal: No Clubbing, No Cyanosis and No Edema
Skin: Warm and Dry
Neuro: AO x 3
Psych: Calm
Impression / Plan
-
# PEA arrest
-EKG shows NSR, no ischemic changes
-stat echo: EF 70-75%, moderate aortic stenosis; stable from prior
-seems to be anaphylaxis to vancomycin: would continue to treat
-no additional cardiac testing recommended at this time
-please call us back with additional questions
# HTN
-home meds on hold given hypotension
# Moderate
-stable
Data Reviewed
-
EKG: Tracing Personally Visualized and interpreted (ST 139 bpm)
Labs: Labs Reviewed by me
Critical Care Time (in minutes): 45
[2024-05-12] MEDS: CYMBALTA DELAYED RELEASE 60 MG PO (17:34)
[2024-05-12] MEDS: FIBERCON 1250 MG PO (17:34)
[2024-05-12] MEDS: LOVENOX 40 MG SC (17:35)
[2024-05-12] MEDS: NEURONTIN 300 MG PO (17:35)
[2024-05-12] MEDS: VITAMIN B-12 1000 MCG PO (17:36)
[2024-05-12] MEDS: THERAGRAN 1 TABLET PO (17:36)
[2024-05-12] MEDS: OSCAL CAL 500 500 MG PO (17:36)
[2024-05-12] MEDS: VITAMIN D3 (cholecalciferol) 25 MCG PO (17:36)
[2024-05-12] MEDS: LANTUS 0.5 UNITS SC (18:06)
--- NOTE | 2024-05-12 18:21 | PTCARENOTE ---
Received pt from ED on epi as charted. Pt bp within paramaters upon arrival, hr jumped to 150s. Epi off and bp remains in parameters. Pt admitted with only c/o 2/10 sternal 'soreness' after cpr. Nausea resolved prior to admission after zofran
given in ED. Pt on room air, no sob cough/wheeze/stridor/rash. Pt without s/s of allergic rxn until due for decadron, face and neck noted to be red/flushed which improved after decadron. Pt otherwise no symptoms. Denies sob/itching/nausea.
Conversing with staff and on phone t/o shift. Up to bathroom and chair with minimal assist. Otherwise please refer to worklist.
--- NOTE | 2024-05-12 20:00 | PTCARENOTE ---
Assumed care of patient at 1900, nursing assessment completed and as documented. Patient s/p Epi gtt, Ox3, on RA lung sounds diminished/coarse with inspiratory wheezes at time's sats 95-100%. SR/ST on monitor rates 90-100's, audible murmur, +PP weak
but present. Abdomen round/obese, continent of bowel and bladder. Patient ambulated self to bathroom without difficulty. HS medications given without difficulty. IVF infusing via L hand PIV at 125ml/hr. R AC PIV intact with blood return. Call matute
within reach, VSS, care ongoing.
[2024-05-12] MEDS: PEPCID 20 MG PO (20:44)
[2024-05-12] MEDS: TYLENOL 650 MG PO (20:44)
[2024-05-12] MEDS: KLONOPIN 0.5 MG PO (21:58)
[2024-05-12] MEDS: ASPIR LOW (ENTERIC COATED) 81 MG PO (21:58)
[2024-05-12] MEDS: FLEXERIL 10 MG PO (21:58)
[2024-05-12] MEDS: NEURONTIN 600 MG PO (21:59)
[2024-05-12 22:16] LABS: Glucose - Point of Care 165 mg/dl (70-99)
[2024-05-13] VITALS (10 sets, daily range): BP systolic 109–153; BP diastolic 54–85; BMI 35.6
--- NOTE | 2024-05-13 | PTCARENOTE ---
No changes to physical assessment. Patient to use own CPAP unit per order, placed on self without issue. NSS remain infusing via R hand PIV at 125ml/hr. Call matute within reach, VSS, care ongoing.
--- NOTE | 2024-05-13 04:00 | PTCARENOTE ---
No changes to physical assessment. Call matute within reach, VSS, care ongoing.
[2024-05-13] MEDS: DECADRON 4 MG IV ×2 (04:29→09:44)
[2024-05-13 04:55] LABS: Hematocrit 35.8 % (37.0-47.0); Mean Corp Hgb Conc. 33.5 g/dL (33.0-37.0); Mean Corpuscular Hgb 30.5 pg (27.0-31.0); Mean Corpuscular Volume 90.9 fL (81.0-99.0); Mean Platelet Volume 10.4 fL (7.4-10.4); Platelet Count 241 10^3/uL (130-400); Red Blood Cell Count 3.94 10^6/uL (4.20-5.40); Red Cell Dist. Width 14.7 % (11.5-14.5); White Blood Cell Count 13.9 10^3/uL (4.8-10.8)
[2024-05-13 05:18] LABS: Blood Urea Nitrogen 20 mg/dl (7-17); Calcium 9.3 mg/dl (8.4-10.2); Carbon Dioxide 22 mmol/L (22-30); Chloride 111 mmol/L (98-107); Estimated Creatinine Clearance 69 ml/min; Glucose 182 mg/dl (70-99); Sodium 142 mmol/L (135-145); eGFR > 60.00
[2024-05-13] MEDS: NSS 1000 IV (05:56)
[2024-05-13] MEDS: SYNTHROID 100 MCG PO (05:56)
--- NOTE | 2024-05-13 07:29 | W.PN.INTV ---
Today's Communication / Plan
Recommendations
No further events, off epi >24 hours
Ambulating in room, stable on RA
If no further w/u needed, can likely discharge today to home
FU outpatient pulmonary with Dr Ndiaye at next routine visit
Assessment
-
Patient is an 78-year-old female with previous history of asthma, ROSALIA, hypertension presenting for elective lymph node biopsy. She was in her usual state of health prior to presentation. There was notable flushing of her face on arrival to IR
suite. She had been started on vancomycin infusion and about 5 minutes later was found unresponsive with pulseless electrical activity. Code 9 called, she underwent 1 round of CPR and epinephrine and had return of spontaneous circulation. She was
transported to ER for further workup. Blood work was unremarkable, she is placed on epinephrine drip due to hypotension for presumed vancomycin allergy. Admitted to ICU for further evaluation.
Presumed vancomycin allergy
Shock, on epi gtt
Unresponsive episode s/p CPR, 1 epi, with ROSC
Hyperglycemia
Lymphadenopathy, presumed malignancy
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
Asthma, well controlled
ROSALIA on CPAP
Moderate on ECHO
Obesity
Essential hypertension
Hypothyroidism
DM2
Appendectomy
Cholecystectomy
Hysterectomy
Plan
No current signs of metabolic encephalopathy or MS changes/following commands
Denies pain at this time. Slight chest pain at site of CPR, mild
Pain/sedation: PRN
RASS goals: 0
Hemodynamically stable, not requiring pressors.
Requiring pressors: epi gtt started, off >24 hours
Cardiac history reviewed--HTN
Prior ECHO reviewed indicating hyperdynamic EF, moderate , stable
Cards eval, no indication for cath
Monitor on telemetry
Oxygen needs: stable on RA
Prior history of lung disease: asthma, ROSALIA on CPAP
Supplemental O2 as indicated to maintain sats > 89%
CXR/CT reviewed indicating NAD
Check d-dimer to r/o VTE--negative
Diet advancement per team
[employer] Technical Assistant recommendations
Aspiration precautions, HOB > 30 degrees
Speech therapy eval can be considered if at elevated risk
GI prophylaxis if indicated
Creat at baseline, no history of renal disease
Void trials
Follow urine output, critical I/Os
Replete electrolytes as needed
No signs/symptoms suspicious for infectious etiology at this time
Observe off antibiotics for now
Follow fever trend, WBC count
CBC stable, no signs of bleeding or coagulopathy.
DVT prophylaxis as assessed based on risk, including mechanical SCDs
Can transfuse if indicated for Hb <7, plt < 10
INR WNL
H/o hypothyroidism, can continue on home synthroid dose
H/o diabetes, can continue on home meds, SS for coverage
HbA1c 6.3
Discharge planning per team
Diagnostic Data
Chest X-Ray: 05/12/24- Linear foci in both lower lobes are likely subsegmental atelectasis
CT Scan: AP 04/07/24- 1. No significant acute abnormality identified in the abdomen or pelvis, as described above.
2. Grossly stable scattered small retroperitoneal lymph nodes, likely reactive. Additional stable chronic findings as described.
Echo: 05/12/24- Hyperdynamic left ventricular systolic function. Left ventricular ejection fraction is 70-75%. Moderate aortic stenosis. Peak/mean gradients are 42/20 mmHg. The valve area by
continuity equation is 1.0 cmsq, using a LVOT of 2.0cm. Mild aortic regurgitation. Normal pericardium without effusion.
PFT's:
Reports and relevant images were personally reviewed.
-----
Critical care time 35 mins -- this includes review of history, physical exam, medications, hemodynamic/ventilator parameters, laboratory data, imaging and discussion with house staff, pharmacy, respiratory therapy, blender/braze applicator, and nursing.
Subjective Dataa
Subjective Data
Date of Service:
Date of Service: May 13, 2024
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
Subjective:
No acute events ON, no new complaints
Off pressors
Feels well, stable on RA
Ambulating in her room
Objective Data
Data Reviewed
Vital Signs / I&O / Oxygen:
Vital Signs
Temp Pulse Resp BP Pulse Ox
97.7 F 99 17 153/85 95
05/13/24 03:49 05/13/24 06:00 05/13/24 06:00 05/13/24 06:00 05/13/24 06:00
Intake and Output
05/12/24 05/13/24 05/14/24
06:59 06:59 06:59
Intake Total 2780 / 2780
Balance 2780 / 2780
SaO2 95
Nasal Cannula flow liters per 4
minute
Physical Exam
General: Comfortable and Other (NAD)
HEENT: Normocephalic, Anicteric and Moist Mucous Membranes
Cardiovascular: S1-S2 and Regular Rhythm
Respiratory: Clear and Non-Labored Respirations
GI: Soft, Non Distended and Non Tender
Neurology: Awake, Alert, Oriented and No Motor Deficits
Skin: Warm, Dry and Good Color
Labs/Micro/Reports
Lab Data
05/13/24 04:36
05/13/24 04:36
Laboratory Results
05/12/24
09:27
PT 13.9
INR 1.08
APTT 27.1
[2024-05-13] MEDS: NOVOLOG FLEXPEN-HIGH RESISTANCE 2 UNITS SC (07:31)
[2024-05-13 07:41] LABS: Glucose - Point of Care 166 mg/dl (70-99)
[2024-05-13] MEDS: NEURONTIN 300 MG PO (07:41)
[2024-05-13] MEDS: LANTUS 0.5 UNITS SC (07:41)
[2024-05-13] MEDS: PEPCID 20 MG PO (07:41)
--- NOTE | 2024-05-13 08:33 | W.PN.HOSP.TC ---
Today's Communication/Plan
-
d/c
Assessment / Plan
Assessment / Plan
Gen: remains NAD, AAOx3.
Eyes: remains EOMI, PERRLA, no scleral icterus.
Neck: supple.
CV: RRR, +S1/S2, 2/6 systolic murmur
Resp: CTAB, no rales, wheezes, or rhonchi.
Abd: +BS, soft, NT, ND
Skin: No rashes.
Neuro: CN 2-12 intact, non-focal.
Psych: Normal mood and affect.
CXR: Linear foci in both lower lobes are likely subsegmental atelectasis
ECG (read by me): sinus tachy at 139, nl axis/intervals, no acute ST/TW changes
Echo: EF 70-75%. Mod . Peak/mean gradients are 42/20 mmHg. The valve area by continuity equation is 1.0 cmsq, using a LVOT of 2.0cm. Mild AR. Normal pericardium without effusion.
ER Tx: Decadron 8mg IV, Pepcid 20mg (allergic to benadryl), epinephrine gtt started
Acute PEA cardiac arrest:
-likely due to anaphylaxis from vancomycin
-Patient with distributive shock and was briefly on epinephrine drip
-continue to NC O2 support, wean as tolerated
-echo above, no RWMA, decreased EF, etc
-cont Decadron
Other problems:
Adenocarcinoma unknown primary
Essential hypertension: Holding HCTZ
Hypothyroidism: cont Levoxyl
DM2: cont Lantus/SSI/accuchecks, check a1c
Case discussed with Drs. Infante (over [facility]) and Rosibel in person and they are OK with the pt being discharged.
Total time spent on d/c = 31 min. This included today's physical exam, progress note, review of laboratory and diagnostic data, preparation of discharge documents and prescriptions, and discussions about the pt's hospital course and discharge plan
with the patient and other medical librarian involved in the patient's care.
Anticipated Discharge: Today
Subjective/Interval History
-
Date of Service: May 13, 2024
No new/acute complaints.
Objective Data
-
Labs:
Laboratory Results
05/13/24
04:36
WBC 13.9 H
Hgb 12.0
Hct 35.8 L
Plt Count 241
Sodium 142
Potassium 5.0
Chloride 111 H
Carbon Dioxide 22
BUN 20 H
Creatinine 0.7
Glucose 182 H
Calcium 9.3
Vital Signs:
Vital Signs
Temp Pulse Resp BP Pulse Ox
97.7 F 99 17 153/85 95
05/13/24 03:49 05/13/24 06:00 05/13/24 06:00 05/13/24 06:00 05/13/24 06:00
I&O
05/12/24 05/13/24 05/14/24
06:59 06:59 06:59
Intake Total 2780 / 2780
Balance 2780 / 2780
--- NOTE | 2024-05-13 09:14 | PTCARENOTE ---
Rec'd pt at 0700. Pt AAOx3, sitting on side of bed. Monitor SR. States she has some sternal chest soreness from CPR, not requiring medication at this time. Lungs CTA, pox 98% RA. +BS, abd soft/nt. Ambulating in room, to bathroom to void. OOB in
chair at this time.
[2024-05-13 10:14] LABS: Glycohemoglobin (HgbA1c) 6.3 % (4.0-5.6)
--- NOTE | 2024-05-13 11:09 | CM ---
CM following re: discharge planning.
Reviewed pt's chart, met with t.
Pt is an 78 year old female, admitted with primary dx of Acute PEA cardiac arrest: likely due to anaphylaxis from vancomycin.
Pt reports she lives with 1SH, 2 steps to enter, has 2 supportive children and a dog. 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 no DME, VN or SNF history.
Discharge order noted. Pt is aware, expressed her agreement with discharge and pt stated she will not need any after care VN services and her is coming to transport home. IMM reviewed, placed on chart, pt has a copy.
PCP: Mirta Hicks
Pharmacy: [facility].
D/C plan: home no needs. to transport
--- NOTE | 2024-05-13 11:36 | PTCARENOTE ---
Pt discharged to home at approx 1130.
--- NOTE | 2024-05-13 13:41 | W.DCSUMMARY ---
Discharge Summary
Discharge Data
Date of Admission: 05/12/24
Date of Discharge: 05/13/24
-
Pending Results: No
Hospital Course
Primary Diagnoses:
Acute pulseless electrical activity cardiac arrest likely due to anaphylaxis from vancomycin
Distributive shock
Secondary Diagnoses:
Adenocarcinoma unknown primary
Essential hypertension
Hypothyroidism
Type 2 diabetes mellitus
Obesity due to excess calories
Consultants:
Cardiology
Critical care medicine
Imaging/studies:
CXR: Linear foci in both lower lobes are likely subsegmental atelectasis
ECG (read by me): sinus tachy at 139, nl axis/intervals, no acute ST/TW changes
Echo: EF 70-75%. Mod . Peak/mean gradients are 42/20 mmHg. The valve area by continuity equation is 1.0 cmsq, using a LVOT of 2.0cm. Mild AR. Normal pericardium without effusion.
Hospital course: 78-year-old female who was admitted yesterday after PEA cardiac arrest as outlined in H&P done on admission. The patient was in interventional radiology and was found unresponsive 5 minutes after receiving IV vancomycin. The
patient received 1 round of CPR and epinephrine with return of spontaneous circulation. In the ER the patient received IV Decadron, Pepcid and was started on an epinephrine drip. The patient was only on the epinephrine drip for very short period
of time. She did require supplemental oxygen and was weaned to room air. She was continued on IV Decadron and Pepcid. The case was discussed with Drs. Thomas and Naresh on the day of discharge the patient was medically cleared for discharge.
Unexpected rapid recovery.
Discharge Plan
-
Patient Disposition: Home (Routine Discharge)
Discharge Diagnosis/Procedures: Anaphylactic reaction to vancomycin
Condition: Good
Diet: Diabetic, Carb Controlled
Activity: No restrictions
Driving Restrictions: As prior to admission
Bathing Restrictions: None
Referrals:
Mirta Hicks MD [Family Provider] - in two to three days
Prescriptions:
New
famotidine 20 mg Tablet
20 mg PO BID Qty: 60 0RF
Continued
cyclobenzaprine 10 MG tablet
10 mg PO HS
Patient Comments:
no pharamcy records
clonazepam 0.5 MG tablet
0.5 mg PO HS
aspirin 81 MG tablet,delayed release (DR/EC)
81 mg PO HS
levothyroxine 100 MCG tablet
100 mcg PO DAILY
hydrochlorothiazide 25 MG tablet
25 mg PO MOFR PRN (Reason: edema)
fish oil-dha-epa 1 EACH capsule
1 cap PO BID
multivitamin with folic acid [Tab-A-Eleni] 1 TABLET tablet
1 tab PO QPM
cyanocobalamin (vitamin B-12) 1,000 MCG tablet
1,000 mcg PO QPM
calcium polycarbophil [Fiber-Tabs] 625 MG tablet
1,250 mg PO QPM
duloxetine 60 MG capsule,delayed release(DR/EC)
60 mg PO Q48H@1800
insulin glargine [Lantus Solostar U-100 Insulin] 300 UNITS/3 ML insulin pen
48 - 75 units SC BID
hydromorphone [Dilaudid] 2 mg Tablet
2 mg PO BIDPRN PRN (Reason: severe pain)
Ozempic 2 mg/dose (8 mg/3 mL) Pen Injector
2 mg SC HI
calcium carbonate 500 mg calcium (1,250 mg) Tablet
500 mg PO QPM
lidocaine 5 % Adhesive Patch,Medicated
1 patch TOPICAL DAILY
Rx Instructions:
low back
metronidazole 0.75 % Cream
1 applic TOPICAL DAILY
gabapentin 300 mg Capsule
300 mg PO BID@0800,1800
gabapentin 300 mg Capsule
600 mg PO HS
doxycycline monohydrate [Oracea] 40 mg Capsule,Ir - Delay Rel,Biphase
40 mg PO DAILY
cholecalciferol (vitamin D3) [Vitamin D3] 25 mcg (1,000 unit) Tablet
25 mcg PO QPM
albuterol sulfate 90 mcg/actuation Hfa Aerosol Inhaler
2 puff INHALATION QID PRN (Reason: sob)
budesonide-formoterol [Symbicort] 160-4.5 mcg/actuation Hfa Aerosol Inhaler
2 puff INHALATION BID
Discharge Orders:
Discharge Patient (As Directed); Ordered 05/13/24
Ordered By: Garrett Mix
Discharge Date and Time
Discharge Date/Time: 05/13/24 11:36
Print Language: BHUTANESE
== END 2024-05-13 11:36 | disposition home or self-care (01) | DRG 915 ==
LOC: ICU 11:46
PROVIDERS: Nurse Practitioner Family; ADMITTING PHYSICIAN Internal Medicine; CONSULT PHYSICIAN Internal Medicine; EMERGENCY PHYSICIAN Emergency Medicine; FAMILY PHYSICIAN Internal Medicine
PROC: 5A19054 Respiratory Ventilation, Single, Nonmechanical (ICD-10-PCS; 2024-05-12)
DX: T88.6XXA Anaphylactic reaction due to adverse effect of correct drug or medicament properly administered, initial encounter (principal); I46.8 Cardiac arrest due to other underlying condition; E03.9 Hypothyroidism, unspecified; E04.2 Nontoxic multinodular goiter; E11.65 Type 2 diabetes mellitus with hyperglycemia; F32.A Depression, unspecified; I10 Essential (primary) hypertension; I35.0 Nonrheumatic aortic (valve) stenosis; J45.909 Unspecified asthma, uncomplicated; E66.09 Other obesity due to excess calories; Z68.35 Body mass index [BMI] 35.0-35.9, adult; C80.1 Malignant (primary) neoplasm, unspecified; T36.8X5A Adverse effect of other systemic antibiotics, initial encounter; F41.9 Anxiety disorder, unspecified; G47.33 Obstructive sleep apnea (adult) (pediatric); R00.0 Tachycardia, unspecified; R59.1 Generalized enlarged lymph nodes; Z79.4 Long term (current) use of insulin; Z79.51 Long term (current) use of inhaled steroids; Z79.890 Hormone replacement therapy; Z79.899 Other long term (current) drug therapy; Z87.19 Personal history of other diseases of the digestive system; Z90.49 Acquired absence of other specified parts of digestive tract; Z90.89 Acquired absence of other organs; Z90.710 Acquired absence of both cervix and uterus; Z88.5 Allergy status to narcotic agent; Z88.8 Allergy status to other drugs, medicaments and biological substances; Z91.048 Other nonmedicinal substance allergy status
CPT/HCPCS: 71045; 80048; 82962; 83036; 83735; 84484; 85025; 85027; 85379; 85610; 85730; 93005; 93306; 96365; 96366; 96375; 99291

== ENCOUNTER → 2024-05-22 06:59 | Outpatient (REF) | payer MEDICARE, SELFPAY ==
[2024-05-22 07:47] LABS: ALT (SGPT) 26 U/L (0-35); AST (SGOT) 28 U/L (14-36); Albumin 4.1 g/dl (3.5-5.0); Alkaline Phosphatase 83 U/L (38-126); Blood Urea Nitrogen 14 mg/dl (7-17); Carbon Dioxide 24 mmol/L (22-30); Chloride 110 mmol/L (98-107); Glucose 88 mg/dl (70-99); HDL Cholesterol 35 mg/dl; LDL Cholesterol, Calculated 97 mg/dl; Potassium 4.4 mmol/L (3.5-5.1); Sodium 145 mmol/L (135-145); Total Bilirubin 0.4 mg/dl (0.2-1.3); Total Cholesterol 175 mg/dl (50-199); Total Protein 6.3 g/dl (6.3-8.2); Triglyceride 217 mg/dl (10-149); Very Low Density Lipoprotein 43 mg/dl (0-30); eGFR > 60.00
[2024-05-22 08:16] LABS: TSH Reflex To Free T4 4.97 uIU/ml (0.47-4.68)
[2024-05-22 09:08] LABS: Free T4 0.82 ng/dl (0.78-2.19)
== END ==
LOC: REG 06:59
PROVIDERS: ATTENDING PHYSICIAN Internal Medicine
DX: E11.9 Type 2 diabetes mellitus without complications (principal); E03.9 Hypothyroidism, unspecified; I10 Essential (primary) hypertension
CPT/HCPCS: 36415; 80053; 80061; 84439; 84443

== ENCOUNTER → 2024-07-31 08:09 | Outpatient (REF) | payer MEDICARE, SELFPAY | LOC: RAD 08:09 | PROVIDERS: ATTENDING PHYSICIAN Internal Medicine | DX: Z78.0 Asymptomatic menopausal state (principal) | CPT/HCPCS: 77080 ==

== ENCOUNTER → 2024-09-05 07:51 | Outpatient (REF) | payer MEDICARE, SELFPAY ==
[2024-09-05 09:45] LABS: ALT (SGPT) 30 U/L (0-35); AST (SGOT) 34 U/L (14-36); Albumin 4.5 g/dl (3.5-5.0); Alkaline Phosphatase 99 U/L (38-126); Blood Urea Nitrogen 17 mg/dl (7-17); Calcium 10.2 mg/dl (8.4-10.2); Carbon Dioxide 29 mmol/L (22-30); Chloride 103 mmol/L (98-107); Glucose 83 mg/dl (70-99); HDL Cholesterol 39 mg/dl; LDL Cholesterol, Calculated 79 mg/dl; Potassium 4.7 mmol/L (3.5-5.1); Sodium 141 mmol/L (135-145); Total Bilirubin 0.4 mg/dl (0.2-1.3); Total Cholesterol 169 mg/dl (50-199); Total Protein 6.8 g/dl (6.3-8.2); Triglyceride 257 mg/dl (10-149); Very Low Density Lipoprotein 51 mg/dl (0-30); eGFR > 60.00
[2024-09-05 10:27] LABS: TSH Reflex To Free T4 3.52 uIU/ml (0.47-4.68)
[2024-09-05 11:32] LABS: Glycohemoglobin (HgbA1c) 6.3 % (4.0-5.6)
== END ==
LOC: REG 07:51
PROVIDERS: ATTENDING PHYSICIAN Internal Medicine
DX: E11.9 Type 2 diabetes mellitus without complications (principal); E03.9 Hypothyroidism, unspecified; I10 Essential (primary) hypertension
CPT/HCPCS: 36415; 80053; 80061; 83036; 84443

== ENCOUNTER → 2024-12-08 07:15 | Outpatient (REF) | payer MEDICARE, SELFPAY ==
[2024-12-08 10:21] LABS: Glycohemoglobin (HgbA1c) 6.1 % (4.0-5.6)
[2024-12-08 14:44] LABS: ALT (SGPT) 25 U/L (0-35); AST (SGOT) 29 U/L (14-36); Albumin 3.9 g/dl (3.5-5.0); Alkaline Phosphatase 82 U/L (38-126); Blood Urea Nitrogen 20 mg/dl (7-17); Calcium 10.5 mg/dl (8.4-10.2); Carbon Dioxide 27 mmol/L (22-30); Chloride 111 mmol/L (98-107); Glucose 82 mg/dl (70-99); HDL Cholesterol 33 mg/dl; LDL Cholesterol, Calculated 85 mg/dl; Potassium 4.9 mmol/L (3.5-5.1); Sodium 144 mmol/L (135-145); Total Bilirubin 0.6 mg/dl (0.2-1.3); Total Cholesterol 154 mg/dl (50-199); Total Protein 6.3 g/dl (6.3-8.2); Triglyceride 184 mg/dl (10-149); Very Low Density Lipoprotein 36 mg/dl (0-30); eGFR > 60.00
== END ==
LOC: REG 07:15
PROVIDERS: ATTENDING PHYSICIAN Internal Medicine
DX: I10 Essential (primary) hypertension (principal); E11.9 Type 2 diabetes mellitus without complications; E03.9 Hypothyroidism, unspecified
CPT/HCPCS: 36415; 80053; 80061; 83036; 84443

== ENCOUNTER → 2025-01-24 08:41 | Outpatient (REF) | payer MEDICARE, SELFPAY | LOC: RCS 08:41 | PROVIDERS: ATTENDING PHYSICIAN Internal Medicine Cardiovascular Disease; FAMILY PHYSICIAN Internal Medicine | DX: I35.0 Nonrheumatic aortic (valve) stenosis (principal) | CPT/HCPCS: 93306 ==

== ENCOUNTER → 2025-01-30 11:15 | Outpatient (REF) | payer MEDICARE, SELFPAY | LOC: WDC 11:15 | PROVIDERS: ATTENDING PHYSICIAN Internal Medicine | DX: Z12.31 Encounter for screening mammogram for malignant neoplasm of breast (principal) | CPT/HCPCS: 77063; 77067 ==

== ENCOUNTER → 2025-03-15 08:04 | Outpatient (REF) | payer MEDICARE, SELFPAY ==
[2025-03-15 09:00] LABS: Microalb - Urine Creatinine 25.800 mg/dl
[2025-03-15 09:06] LABS: Microalbumin, Random Urine <0.6 mg/dl (0.6-1.7)
[2025-03-15 09:08] LABS: ALT (SGPT) 131 U/L (0-35); AST (SGOT) 88 U/L (14-36); Albumin 4.6 g/dl (3.5-5.0); Alkaline Phosphatase 86 U/L (38-126); Blood Urea Nitrogen 15 mg/dl (7-17); Calcium 10.2 mg/dl (8.4-10.2); Carbon Dioxide 28 mmol/L (22-30); Chloride 108 mmol/L (98-107); Glucose 89 mg/dl (70-99); HDL Cholesterol 43 mg/dl; LDL Cholesterol, Calculated 92 mg/dl; Potassium 4.6 mmol/L (3.5-5.1); Sodium 144 mmol/L (135-145); Total Protein 7.0 g/dl (6.3-8.2); Very Low Density Lipoprotein 38 mg/dl (0-30); eGFR > 60.00
[2025-03-15 09:32] LABS: Glycohemoglobin (HgbA1c) 6.2 % (4.0-5.6)
== END ==
LOC: REG 08:04
PROVIDERS: ATTENDING PHYSICIAN Internal Medicine
DX: I10 Essential (primary) hypertension (principal); E11.9 Type 2 diabetes mellitus without complications; E03.9 Hypothyroidism, unspecified
CPT/HCPCS: 36415; 80053; 80061; 82043; 82570; 83036; 84443

== ENCOUNTER → 2025-03-16 15:24 | Outpatient (REF) | payer MEDICARE, SELFPAY | LOC: HWRAD 15:24 | PROVIDERS: ATTENDING PHYSICIAN Internal Medicine | DX: R79.89 Other specified abnormal findings of blood chemistry (principal) | CPT/HCPCS: 76700 ==

== ENCOUNTER → 2025-03-19 06:56 | Outpatient (REF) | payer MEDICARE, SELFPAY ==
[2025-03-19 08:25] LABS: ALT (SGPT) 50 U/L (0-35); AST (SGOT) 28 U/L (14-36); Albumin 4.5 g/dl (3.5-5.0); Alkaline Phosphatase 93 U/L (38-126); Blood Urea Nitrogen 15 mg/dl (7-17); Calcium 10.2 mg/dl (8.4-10.2); Carbon Dioxide 27 mmol/L (22-30); Chloride 108 mmol/L (98-107); Glucose 99 mg/dl (70-99); HDL Cholesterol 42 mg/dl; LDL Cholesterol, Calculated 102 mg/dl; Potassium 4.8 mmol/L (3.5-5.1); Sodium 142 mmol/L (135-145); Total Protein 7.1 g/dl (6.3-8.2); Very Low Density Lipoprotein 33 mg/dl (0-30); eGFR > 60.00
[2025-03-19 10:50] LABS: Microalbumin, Random Urine 1.7 mg/dl (0.6-1.7)
[2025-03-19 10:59] LABS: Microalb - Urine Creatinine 56.600 mg/dl
[2025-03-19 11:00] LABS: Glycohemoglobin (HgbA1c) 6.3 % (4.0-5.6)
== END ==
LOC: REG 06:56
PROVIDERS: ATTENDING PHYSICIAN Internal Medicine
DX: E11.9 Type 2 diabetes mellitus without complications (principal); I10 Essential (primary) hypertension
CPT/HCPCS: 36415; 80053; 80061; 82043; 82248; 82570; 83036; 84443

== ENCOUNTER → 2025-05-28 13:22 | Outpatient (REF) | payer MEDICARE, SELFPAY | LOC: PAVMRI 13:22 | PROVIDERS: ATTENDING PHYSICIAN Internal Medicine | DX: K83.8 Other specified diseases of biliary tract (principal); R79.89 Other specified abnormal findings of blood chemistry | CPT/HCPCS: 74183; A9575 ==

== ENCOUNTER → 2025-06-14 07:36 | Outpatient (REF) | payer MEDICARE, SELFPAY ==
[2025-06-14 09:03] LABS: Hematocrit 39.7 % (37.0-47.0); Hemoglobin 13.1 g/dL (12.0-16.0); Mean Corp Hgb Conc. 33.0 g/dL (33.0-37.0); Mean Corpuscular Volume 91.7 fL (81.0-99.0); Nucleated Red Blood Cells % 0 %; Platelet Count 257 10^3/uL (130-400); Red Cell Dist. Width 14.6 % (11.5-14.5)
[2025-06-14 09:55] LABS: Glycohemoglobin (HgbA1c) 6.4 % (4.0-5.9)
[2025-06-14 12:04] LABS: ALT (SGPT) 30 U/L (0-35); AST (SGOT) 32 U/L (14-36); Albumin 4.4 g/dl (3.5-5.0); Alkaline Phosphatase 76 U/L (38-126); Blood Urea Nitrogen 16 mg/dl (7-17); Calcium 9.9 mg/dl (8.4-10.2); Carbon Dioxide 26 mmol/L (22-30); Chloride 109 mmol/L (98-107); Glucose 87 mg/dl (70-99); HDL Cholesterol 35 mg/dl; LDL Cholesterol, Calculated 85 mg/dl; Potassium 4.9 mmol/L (3.5-5.1); Sodium 141 mmol/L (135-145); Total Protein 7.0 g/dl (6.3-8.2); Very Low Density Lipoprotein 42 mg/dl (0-30); eGFR > 60.00
== END ==
LOC: REG 07:36
PROVIDERS: ATTENDING PHYSICIAN Internal Medicine
DX: I10 Essential (primary) hypertension (principal); E78.2 Mixed hyperlipidemia; E03.9 Hypothyroidism, unspecified; R53.83 Other fatigue; E11.9 Type 2 diabetes mellitus without complications
CPT/HCPCS: 36415; 80053; 80061; 83036; 84443; 85025